=== PATIENT | female | born 1965 | race Caucasian/White ===

== ENCOUNTER → 2020-05-01 | Outpatient (CLI) | payer BC ==
[~2020-05-01] MED LIST: CELEBREX200 MG PO; ELIQUIS2.5 MG PO; HYDROCHLOROTHIA25 MG PO; NAPROXEN250 MG PO; NORCO 5-325 TA1 EACH PO; OXYCODON-ACETA1 EAC1 PO; TOPROL XL25 MG PO; VITAMIN D31250 MCG PO
== END ==
LOC: KOH-I 11:00
DX: M25.561 Pain in right knee (principal); M17.11 Unilateral primary osteoarthritis, right knee; M94.261 Chondromalacia, right knee; M24.10 Other articular cartilage disorders, unspecified site; S83.241A Other tear of medial meniscus, current injury, right knee, initial encounter; X58.XXXA Exposure to other specified factors, initial encounter
CPT/HCPCS: 73721

== ENCOUNTER → 2020-06-10 | Outpatient (CLI) | payer BC, OTHER ==
[2020-06-10 09:12] LABS: HEMOGLOBIN 13.5 gm/dl (12.3-15.3); RED BLOOD COUNT 4.84 M/UL (4.00-5.10); WHITE BLOOD COUNT 9.2 K/UL (4.5-11.0)
[2020-06-10 09:41] LABS: BUN/CREATININE RATIO 27 (0-10)
== END ==
LOC: OPSV2 08:00 → EDSTATUS 08:00 → OPSV2 08:14
PROVIDERS: Orthopaedic Surgery
DX: Z01.818 Encounter for other preprocedural examination (principal); M17.11 Unilateral primary osteoarthritis, right knee
CPT/HCPCS: 36415; 71046; 80048; 81001; 85025; 87081; 93005

== ENCOUNTER → 2020-06-17 | Outpatient (CLI) | payer BC, OTHER ==
[2020-06-17 11:29] LABS: BUN/CREATININE RATIO 25 (0-10)
== END ==
LOC: LAB 09:45
PROVIDERS: Orthopaedic Surgery
DX: Z01.812 Encounter for preprocedural laboratory examination (principal)
CPT/HCPCS: 36415; 80048; 86850; 86900; 86901

== ENCOUNTER 2020-06-18 07:13 | Day surgery (SDC) | payer BC, OTHER ==
[~2020-06-18] VITALS: Ht 165.1 cm; Wt 99.8 kg
[~2020-06-18 07:13] MED LIST changes: -ELIQUIS2.5 MG PO; -OXYCODON-ACETA1 EAC1 PO
[2020-06-18] MEDS ORDERED: ELIQUIS2.5 MG PO (11:45)
[2020-06-18] MEDS ORDERED: OXYCODON-ACETA1 EAC1 PO (11:45)
[2020-06-19 04:11] LABS: HEMOGLOBIN 11.7 gm/dl (12.3-15.3); RED BLOOD COUNT 4.31 M/UL (4.00-5.10); WHITE BLOOD COUNT 10.9 K/UL (4.5-11.0)
[2020-06-19 04:26] LABS: BUN/CREATININE RATIO 20 (0-10)
--- NOTE | 2020-06-19 12:45 | NUR ---
06/19/[address] SNOW PULLED HEMOVAC DRAIN
== END 2020-06-19 13:08 | disposition home or self-care (01) ==
LOC: OR 07:13 → EDSTATUS 11:45 → OBS 11:45 → M/S 20:48 → OR 06-19 13:08
PROVIDERS: Orthopaedic Surgery
DX: M17.11 Unilateral primary osteoarthritis, right knee (principal); E11.9 Type 2 diabetes mellitus without complications; E78.5 Hyperlipidemia, unspecified; E66.01 Morbid (severe) obesity due to excess calories; Z82.49 Family history of ischemic heart disease and other diseases of the circulatory system; Z90.49 Acquired absence of other specified parts of digestive tract; Z88.2 Allergy status to sulfonamides; Z68.35 Body mass index [BMI] 35.0-35.9, adult
CPT/HCPCS: 36415; 73560; 80048; 85027; 97110-GP-CQ; 97116-GP-CQ; 97162; 97166; 97535; C1713; C1776; J0592; J0690; J1100; J2001; J2250; J2270; J2405; J2704; J2710; J2795; J3010; J3370; J7120

== ENCOUNTER → 2020-11-05 | Outpatient (CLI) | payer BC ==
[~2020-11-05] MED LIST changes: +ELIQUIS2.5 MG PO; +OXYCODON-ACETA1 EAC1 PO
== END ==
LOC: EXRD 09:04
DX: R94.5 Abnormal results of liver function studies (principal)
CPT/HCPCS: 76705

== ENCOUNTER → 2021-11-12 | Outpatient (CLI) | payer BC | LOC: RAD 14:39 | DX: M53.3 Sacrococcygeal disorders, not elsewhere classified (principal) | CPT/HCPCS: 72220 ==